=== PATIENT | female | born 1990 | race Caucasian/White ===

== ENCOUNTER → 2020-10-31 18:10 | Outpatient (CLI) | payer MEDICAID, SELFPAY | PROVIDERS: Referring Provider Obstetrics & Gynecology; Visit Provider Obstetrics & Gynecology | DX: Z36.85 Encounter for antenatal screening for Streptococcus B (principal) | CPT/HCPCS: 87081 ==

== ENCOUNTER → 2020-11-06 16:35 | Outpatient (CLI) | payer MEDICAID, SELFPAY ==
[2020-11-06 17:30] LABS: Hematocrit 33.8 % (37-47); Hemoglobin 11.5 g/dL (12.0-15.0); Mean Corpuscular Hgb 29.6 pg (27.0-32.0); Mean Corpuscular Volume 86.9 fL (81-99); Mean Platelet Vol. 10.9 fl (6.2-12.0); Platelet Count 225 K/mm3 (150-450); RBC Distribution Width CV 14.4 % (11.6-14.6); RBC Distribution Width SD 45.7 fl (35.1-43.9); Red Blood Count 3.89 M/mm3 (4.2-5.4); White Blood Count 7.9 K/mm3 (4.4-11.0)
[2020-11-06 17:42] LABS: Protein, Urine (Random) 40.4 mg/dL (<11.9); Protein:Creat Ratio 222 mg/g CRE (0-200)
[2020-11-06 17:59] LABS: ALB/GLOB Ratio 0.8 RATIO (0.9-2.4); AST(SGOT) 17 U/L (15-37); Alanine Aminotransfer ALT/SGPT 17 U/L (13-56); Albumin, Serum 2.9 g/dL (3.2-5.0); Alkaline Phosphatase 97 U/L (45-117); Anion Gap 7 (5-15); BUN 5 mg/dL (7-18); BUN/Creat Ratio 10.1 RATIO (10-20); Calcium,Total 8.2 mg/dL (8.5-10.1); Chloride 106 mmol/L (98-107); EST Glomerular Filtration Rate 156 mL/min (>60); Est Glom Filt Rate - Afr Amer 189 mL/min (>60); Globulin 3.6 g/dL (2.2-4.2); Glucose 68 mg/dL (74-106); LDH 215 U/L (84-246); Potassium 3.6 mmol/L (3.5-5.1); Protein, Total 6.5 g/dL (6.4-8.2); Sodium Level 139 mmol/L (136-145)
== END ==
PROVIDERS: Visit Provider Student in an Organized Health Care Education/Training Program
DX: Z34.83 Encounter for supervision of other normal pregnancy, third trimester (principal)
CPT/HCPCS: 36415; 80053; 82570; 83615; 84156; 85027; 87086; 87088

== ENCOUNTER 2020-11-24 01:35 | Inpatient (IN) | payer MEDICAID, SELFPAY ==
[2020-11-24] VITALS (33 sets, daily range): BP systolic 114–196; BP diastolic 60–116; PULSE 60–127; RESP 16–18; TEMP 36.2–36.8; O2SAT 82–100; BMI 39.8
--- NOTE | 2020-11-24 00:18 | PCM.HP.OB ---
HPI - General General Date of Admission: 11/24/20 HPI Narrative SANDY BLEDSOE, is a 30 F who presents at 39 3/7 weeks gestation with c/o contractions Maternal Data Information SUSIE Calculator Estimated Delivery Date Method Current WG Current Estimate 11/28/20 Ultrasound #1 39w 3d Other Estimates 11/28/20 LMP (Certain) 39w 3d PFSH PFSH Medical History (Updated 11/24/20 @ 01:[address] Mayra Roa MD) Anxiety Depression Gestational HTN hemorrhage Home Medications ferrous sulfate [Iron (ferrous sulfate)] 325 mg PO DAILY 11/24/20 [History Last Taken 11/23/20] [id number] [] 1 tab PO DAILY 11/24/20 [History Last Taken 11/23/20] Allergy/AdvReac Type Severity Reaction Status Date / Time No Known Allergies Allergy Verified 11/24/20 00:25 Family History (Updated 11/24/20 @ 00:[address] Mayra Roa MD) Father Suicide Mother Thyroid disorder Other Diabetes Hypertension Social History (Updated 11/24/20 @ 00:[address] Mayra Roa MD) Smoking Status: Never smoker alcohol intake: former details: not during History 3 Elective abortions 0 Hx Para 2 Spontaneous abortions 0 Hx # Term Pregnancies 2 Ectopic pregnancies 0 Hx # Pregnancies 0 Multiple births 0 # of living children 2 Addt'l History[place] [facility] [place]ORY AND PHYSICAL (11/24/2020) Name: SANDY BLEDSOE History of this : This is a 30 year old [id number] presents at 39 wks + 3 days gestation. OB Physician: EVERETT CHÁVEZ MD [place]'s Physician: Theron Swan ...................................................................... : 1990 Age: 30 Address: [address] [place] [address] Phone: [phone]) [phone]) [phone] Insurance Carrier: [facility] [id number] Emergency Contact: ALVARO CHÁVEZ [phone] ...................................................................... Final SUSIE: 11/28/20 By Ultrasound: 10 weeks 5 days PARITY: (G-Total Pregnancies P-Fullterm,Premature,Induced AB,Spont AB, Ectopics, Multiple,Living) SUSIE CONFIRMATION: By LMP: 02/22/20 Final SUSIE: 11/28/20 OB PROBLEM LIST: Needs copy of What to Expect book. EPDS 5. Hx of HTN in first per pt Declines ASA Hx of PPH O Negative Needs Rhogam Plans at [facility] ALLERGIES: No Known Drug Allergies MEDICATIONS: aspirin 81 mg tablet,delayed release 1 PO QD iron 325 mg (65 mg iron) tablet One pill by mouth once a day Vitamin 27 mg iron- 0.8 mg tablet 1 qd SOCIAL HISTORY: Smoking - Never Alcohol Use - drinks occasionally not while Diet - balanced Diet and one Dr Almanza qd. Water- 40 oz qd. Lifestyle - moderate stress lifestyle Exercise - Active w home/kids. Enc to walk 15-20 min daily. 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 LIves w husb and kids. Place of - [place] Spouse-Sig Other Name - Alvaro Chávez Spouse-Sig Other Occupation - Survey Project Manager-short distance Spouse-Sig Other Phone No - [phone] Children Name(s) - Milton 7 y, Ke[place] 5 y. PRIOR DELIVERY HISTORY DEL DATE GEST LAB WT LB WT OZ TYPE ANES LABOR TX 18 Jan 13 38 [phone] Vag Local No 24 Feb 21 39 [phone] Vag Local No ANTEPARTUM FLOW CHART VISIT GE RTC FU F F NJ U U DATE WK MD WKS HT PN HR M SS BP ED WT NJ GL D EF ST __ ____ ___ __ __ ___ __ __ __ ___ __ __ __ ___ __ 13 Nov SHM 1 + 130/62 sl 223 tr - 07 Nov JM 1 37 V + + 134/80 sl 221 - - 1 Oct 36 CM 1 36 V + + 144/60 sl 224 - - 24 Oct 36 JMW 1 36 V + + 136/70 0 222 ne ne ft 50 hi 08 Oct JMW 2 34 + + 128/68 sl 223 tr - September JM 2 32 V + + 144/64 0 222 tr ne October 04 JMW 3 28 + + 130/66 0 224 tr - 06 Aug 31 JMW 4 24 + + 136/70 0 219 - 1+ 11 Jul 28 JM 4 21 - + + 120/82 0 222 tr - May 23 JM 4 14 - + + 115/71 0 222 tr - Apr 18 JMW 4 + + 122/80 0 224 tr - ANTEPARTUM NOTE(S): Nov 19 2020: uncomfortable Nov 13 2020: Regular Cxts x 1-2 hrs, Good FM Nov 06 2020: recheck BP large cuff same 144/60 Oct 31 2020: LARC, GBS today Fox 8 2021: Doing Well, Good FM Oct 03 2020: lying on left side 116/40 Sep 10 2020: Doing Well, 1hrGTT/CBC/Antibody Screen and Rhogam today Aug 13 2020: Glucola/Instructiuons Given for next PNV Jul 18 2020: comp u/s today Jun 04 2020: doing well, nausea improving May 07 2020: Doing Well, Limited U/S today COMPREHENSIVE ANTEPARTUM NOTE(S): Nov 19 2020: Uncomfortable, ready to have baby! Wants cervix ck with membrane stripping if able. Lots of irregular ctx's. Third baby with history of 6 and 10 hour labor. Lives about an hour away. Advised can come when ctx's are 5-7 min apart or sooner if feels things are progressing rapidly. Reviewed FM and to come in if SROM. LMT Nov 13 2020: 37 weeks, feeling contractions but cervix unchanged. Blood pressure today within normal limits we will continue to monitor. JM Nov 06 2020: BP elevated. Denies WEIR's. Reports slight edema in feet when weather is really hot. Good FM. GBS negative 10/31/20. Nov 06 2020: 36/6w visit. GBS neg. BP elevated today, hx of PIH. Denies WEIR, vision changes, chest pain/dyspnea, RUQ pain, nausea. Exam wnl, neuro exam wnl today. Will get labs. Had elevated BP earlier in , but resolved at visit. will get labs. Pt aware if persistent elevation next week she may require induction for gestational HTN. Will notify with signs/symptoms of pre-e. F/u 1w. CM Nov 05 2020: H taken to OB. tkg Oct 31 2020: Sandy is here for PNV. LARC form reviewed and declined. Will consider at follow up apt. Feeling tired with low back pain, Having good FM. GBS today. Urine neg/neg. LSS Oct 03 2020: Sandy is here for PNV. BP elevated 144/64. Retake with lyng on left side 116/40. No edema noted at this visit. Having good FM. They did not make the vacation trip like planned. Having BH ctx with some lower back pain. No other concerns. Urine tr/neg. LSS Oct 03 2020: 32wk, 1hr GTT wnl. s/p Rhogam. Pt with inital elevated BP, repeat wnl and pt asypmtomatic. If elevated at next visit will get HELLP labs. CONSUELO Sep 10 2020: Sandy presents here today for PNV with OGCT, CBC and Antibody Screen drawn in (L) antecubital with 23g x 1 attempt via undersigned without problem. Rhogam full dose given in LUOQ IM after blood draw via undersigned. NOELLE Jul 18 2020: 21wk, anatomy u/s wnl. For 1hr GTT next visit. CONSUELO Jun 04 2020: 14wk, hx of PPH. Hx of 'HTN in first ' per pt, declines ASA r/b/a given. For anatomy u/s at next visit. Traveling to [place], discussed travel precautions. 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 Their kids are Milton age 7 and [place] age 5 born at [facility]. She had PIH w her first pg and a PP hemorrhage w her second just short of having blood transfusions. Sandy has NKA. She's a lifetime non Apr 23 2020: Sandy presents for her Missed Menses. She is a 30yo G 3, P 2 with hx of 2 prior 's. She is planning to deliver via at [facility]. Pt sts she knows her LMP was prior to so we are doing an estimation of approx 02/22/2020 and SUSIE by this LMP is 10/30/20. She is taking OTC PNV's. Pt denies any smoking, and sts she drinks alcohol occassionally but not while . +UPT in office today. JT REVIEW OF SYSTEMS: GENERAL - Denies fever, or chills SKIN - Denies rash, new skin lesions, or change in moles EYES - Denies blurred vision, or change in visual acuity EARS - Denies ear pain, or difficulty hearing NOSE - Denies nasal congestion, discharge, or bleeding MOUTH - Denies sore throat, or difficulty swallowing NECK - Denies pain or swelling RESPIRATORY - Denies shortness of breath, cough, wheezing CARDIOVASCULAR - Denies palpitations, chest pain, orthopnea, PND, peripheral edema, syncope or claudication GASTROINTESTINAL - Denies nausea, vomiting, diarrhea, constipation, Denies abdominal pain, melena and or bright red blood GENITOURINARY - Denies dysuria, frequency of urination, urgency, or hesitancy MUSCULOSKELETAL - Denies joint or muscle pain, or back pain NEUROLOGICAL - Denies localized numbness, weakness, or tingling PSYCHIATRIC - Denies depression, anxiety, substance abuse or suicide attempts ENDOCRINE - Denies heat or cold intolerance, weight loss or gain, increasing thirst HEMATO-IMMUNOLOGIC - Denies easy bruising, bleeding, oral ulcerations or recurrent infections GENETICS SCREENING: Age 35+ years: No Thalassemia: No Neural Tube Defect: No Down Syndrome: No MARIE-SACHS: No Sickle Cell Disease: No Hemophilia: No Musc. Dystrophy: No Cystic Fibrosis: No-declines screening Dave Chorea: No Mental Retardation: No Fragile X: No Other genetic: No Other defects: No SABs/still births: No Drugs since LMP: No INFECTION HISTORY: High risk AIDS: No High risk Hepatitis: No Exposed to TB: No Exposed to Herpes: No Rash/viral illness since LMP: No History of STD: No MENSTRUAL HISTORY: *Menses Regularity: IrregularFrequency: variableBCP's at Conception: NoMenarche (Age Onset): 15* PAST SUMMARY: PARITY: 1. Total Pregnancies............ 3 2. Full Term Pregnancies........ 2 3. Premature.................... 0 4. Abortions - Induced.......... 0 5. Abortions - Spontaneous...... 0 6. Ectopics..................... 0 7. Multiple Births.............. 0 8. Living Children.............. 2 PAST #1: Date of :.................. [birth year] Gestation Weeks:................ 38 Length of labor(hours):......... 10 Sex:............................ M Weight-lbs:............... 7 Weight-oz:................ 7 Type of Delivery:............... Vag Type of Anesthesia:............. Local Place of Delivery:.............. [facility] Treatment of Labor?:.... No Comment: [facility] PAST #2: Date of :.................. 03/02/15 Gestation Weeks:................ 39 Length of labor(hours):......... 8 Sex:............................ F Weight-lbs:............... 9 Weight-oz:................ 0 Type of Delivery:............... Vag Type of Anesthesia:............. Local Place of Delivery:.............. [facility] Treatment of Labor?:.... No Comment: PPHEM. NST FHR Rate Baby A Baseline: 125 Variability:: Moderate Accelerations:: 15 x 15 Decelerations:: None NST Reactive:: Yes FHR Category:: Category I Uterine Activity:: 4/10 min Vital Signs Vital Signs Vital Signs: 11/24/20 00:12 Pulse Rate 103 H Blood Pressure 154/91 H BP Systolic 154 BP Diastolic 91 Pulse Ox 100 Physical Exam Const alert, oriented x3 and no apparent distress HEENT normocephalic Resp normal respiratory effort, normal air movement and clear to auscultation bilaterally Cardio regular rate and regular rhythm GI normal to inspection, nondistended, normoactive bowel sounds, soft to palpation, non-tender and non-distended Inspection: gravid Labs Labs Labs: Blood Type Pending Antibody Screen Pending Hct 36.6 % (37-47) L Hgb 12.5 g/dL (12.0-15.0) 04/23/20 HIV neg, Rubella immune, RPR nr, HCV Ab neg, O neg, HBsAg neg Assessment & Plan (1) 39 weeks gestation of : PLAN: Admit in latent labor, Cat I FHR Elevated BP, prior hx gHTN vs. preeclampsia - will obtain preeclamptic labs
[2020-11-24 01:02] LABS: ROM Internal Control Test YES-OK TO RESULT pt. (Internal QC); ROM Patient Test Negative (Negative)
[2020-11-24 01:02] LABS: Hematocrit 36.6 % (37-47); Hemoglobin 12.5 g/dL (12.0-15.0); Mean Corp Hgb Conc 34.2 g/dL (32-36); Mean Corpuscular Hgb 29.8 pg (27.0-32.0); Mean Corpuscular Volume 87.1 fL (81-99); Mean Platelet Vol. 11.2 fl (6.2-12.0); Platelet Count 252 K/mm3 (150-450); RBC Distribution Width CV 14.6 % (11.6-14.6); White Blood Count 10.1 K/mm3 (4.4-11.0)
[2020-11-24 01:16] LABS: Protein, Urine (Random) 9.9 mg/dL (<11.9); Protein:Creat Ratio 337 mg/g CRE (0-200)
[2020-11-24 01:21] LABS: AST(SGOT) 33 U/L (15-37); Alanine Aminotransfer ALT/SGPT 34 U/L (13-56); Creatinine, Serum 0.51 mg/dL (0.55-1.02); EST Glomerular Filtration Rate 150 mL/min (>60); Est Glom Filt Rate - Afr Amer 182 mL/min (>60); Estimated Creatinine Clearance 135.85 ml/min; Uric Acid 4.5 mg/dL (2.6-6.0)
[2020-11-24] MEDS: Lactated Ringers 1,000 ML 200 ML IV (03:18)
[2020-11-24 03:49] LABS: Chlamydia Trachomatis by PCR Negative (Negative); Neisserai gonorrhoeae by PCR Negative (Negative); Probe Check PASS; Sample Adequacy Control PASS; Specimen Processing Control PASS
[2020-11-24] MEDS: Oxytocin 30 units/NS 500 ml 30 UNITS/500 ML IV.SOLN IV (03:56)
[2020-11-24] MEDS: Oxytocin 30 units/NS 500 ml 30 UNITS/500 ML IV.SOLN 334 UNITS IV (04:09)
[2020-11-24] MEDS: Methylergonovine 0.2 MG/ML Ampul IM (04:14)
--- NOTE | 2020-11-24 04:26 | EX.PCM.OBRPT ---
Assessment & Plan (1) (spontaneous vaginal delivery): Maternal Data Information SUSIE Calculator Estimated Delivery Date Method Current WG Current Estimate 11/28/20 Ultrasound #1 39w 3d Other Estimates 11/28/20 LMP (Certain) 39w 3d Vaginal Delivery Maternal Presentation Maternal Presentation: Latent labor Type of Induction: - (Amniotomy for augmentation) Operative Information Date of Procedure: 11/24/20 Pre-Operative Diagnosis: 39-3/7 weeks gestation Preeclampsia without severe features Post-Operative Diagnosis: 39-3/7 weeks gestation Preeclampsia without severe features Surgery / Procedure Performed: Spontaneous Vaginal Delivery Type of Anesthesia: None Estimated Blood Loss: 450 mL Findings Description of Procedure: Patient was fully dilated and +2 station with category 1 heart rate tracing. She pushed with waning maternal effort thus Pitocin was started for further augmentation. With continued pushing infant head delivered in CLARI. The anterior shoulders delivered with ease. With continued coaching the posterior shoulders and body delivered. The infant was placed on the maternal abdomen further attended by nursery personnel. The cord was doubly clamped and cut. The placenta delivered spontaneously and appeared intact on inspection. The uterus was noted to be atonic thus bimanual uterine exam was performed with retrieval of several clots and uterine tone improved with the fundus at the umbilicus. IM Methergine was given. Perineum was intact. Sponge counts were correct x2. Presentation: Vertex Amniotic Membrane Rupture Type: Artificial Amniotic Fluid Description: Clear Placental Delivery Description: Spontaneous Placenta Disposition: [facility] Cord Vessel Description: 3 Vessels Cord Entanglement: None Nuchal Cord Compression: Without compression Cord Gases: ABG and VBG A Gender: Female (1 minute): 7 (5 minute): 8 Delayed Cord Clamping: No Post Vaginal Delivery Medications Given After Delivery: IV Pitocin and IM Methergin Episiotomy Description: None Laceration: None
--- NOTE | 2020-11-24 04:35 | PCM.DC ---
Discharge Instructions Diet Discharge Diet: No restrictions Activity Discharge Activity: Return to Normal Activity May resume sexual activity in: 4-6 weeks Lifting Restrictions: 20 lb Dressing / Incision Call your doctor if you observe: Fever of 101 or Higher, Using more than 1 pad per hour, Shortness of breath, Chest pain, Calf discomfort, Uncontrolled pain and - (Persistent or severe headache) Follow Up Care Please Follow Up With: Mayra Roa MD When: 1 to 2 weeks for blood pressure check 6 weeks for visit Test Results: Test results from this visit will be discussed in further detail at your follow-up appointment, if applicable. Discharge Plan Admission Admit Date/Time: 11/24/20 01:35 Primary Reason for Your Visit: Vaginal delivery, preeclampsia Attending Provider: Mayra Aiken Instructions Patient Instructions: After a Vaginal , Understanding Preeclampsia, Understanding Depression Discharge Orders/Prescriptions Prescriptions: New ibuprofen 800 mg tablet 800 mg PO Q8H PRN (Reason: pain) Qty: 30 RF: 0 Continued ferrous sulfate [Iron (ferrous sulfate)] 325 mg (65 mg iron) Tablet 325 mg PO DAILY RF: 0 kfchggil-[id number]-Xb-FA 1 mg Tablet 1 tab PO DAILY RF: 0 Disposition Disposition (needs filled in before D/C Order can be placed): Home, Self Care
[2020-11-24] MEDS: Ibuprofen 600 MG Tablet PO ×2 (05:20→23:20)
[2020-11-25 00:25] VITALS: BP 113/63; PULSE 92; RESP 18
[2020-11-25 04:18] VITALS: BP 112/61; PULSE 81; RESP 18; TEMP 36.1
[2020-11-25 06:21] LABS: Hematocrit 30.3 % (37-47); Hemoglobin 10.3 g/dL (12.0-15.0); Mean Corpuscular Hgb 30.1 pg (27.0-32.0); Mean Corpuscular Volume 88.6 fL (81-99); Mean Platelet Vol. 10.6 fl (6.2-12.0); Platelet Count 224 K/mm3 (150-450); RBC Distribution Width CV 14.7 % (11.6-14.6); RBC Distribution Width SD 47.4 fl (35.1-43.9); Red Blood Count 3.42 M/mm3 (4.2-5.4); White Blood Count 8.5 K/mm3 (4.4-11.0)
[2020-11-25 08:00] VITALS: BP 121/70; PULSE 83; RESP 18; TEMP 36.2
--- NOTE | 2020-11-25 08:59 | PCM.PN.OB ---
Subjective Subjective Out of bed and ambulating without difficulty. Voiding without difficulty. her perineum and lower back is sore however improved with ibuprofen. Denies heavy lochia. She is breast-feeding. Objective Data Objective Data Vital Signs: Vital Signs Temp Pulse Resp BP Pulse Ox 97.2 F L 83 18 121/70 H 97 11/25/20 08:00 11/25/20 08:00 11/25/20 08:00 11/25/20 08:00 11/24/20 20:22 Oxygen Delivery Method Room Air Weight: 102.058 kg Body Mass Index (BMI) 39.8 Intake & Output: Intake and Output for Last 24 Hours 11/23/20 11/24/20 11/25/20 23:59 23:59 23:59 Intake Total 653.60 / 653.60 Output Total 600 / 600 Balance 53.60 / 53.60 Lab / Micro Data Result Diagrams: 11/25/20 06:15 11/24/20 00:50 Labs: Laboratory Results - last 24 hr 11/25/20 06:15: WBC 8.5, RBC 3.42 L, Hgb 10.3 L, Hct 30.3 L, MCV 88.6, MCH 30.1, MCHC 34.0, RDW Std Deviation 47.4 H, RDW Coeff of Abelino 14.7 H, Plt Count 224, MPV 10.6 Micro: Microbiology 11/24/20 02:03 Mucosa - Nose SARS-CoV-2 Antigen (Rapid) - Final Physical Exam Const alert, oriented x3 and no apparent distress Resp normal respiratory effort, normal air movement and clear to auscultation bilaterally Cardio regular rate, regular rhythm, S1 normal heart sound and S2 normal heart sound GI normal to inspection, nondistended, normoactive bowel sounds, soft to palpation, non-tender and non-distended Manual OB Exam: other lochia scant Uterus Palpation: uterus fundus firm Extremity no calf tenderness Assessment & Plan (1) (spontaneous vaginal delivery): COMMENT: day #1 status post uncomplicated delivery with gestational hypertension versus preeclampsia PLAN: No signs or symptoms of preeclampsia at this time BP is appropriate Rh neg, infant also Rh neg We will plan for DC home today. Blood pressure check in office in 7 to 10 days.
--- NOTE | 2020-11-25 10:15 | CASEMGMT ---
Social Work Brief Assessment Labor and Delivery Unit Refer documentation below for further details. Date of Referral/Notification: 11/24/20 Time of Referral: 05:50 Referred By: Physician Reason for Referral: MOB with history of anxiety and depression Date of Intervention: 11/25/20 Time of Intervention: 10:15a Informant: Medical record and mother of baby (MOB) Assessment: Met with MOB and FOB-Tripp Caldwell in room. Introduced role and reason for referral. MOB reports this is she and FOB?s 3rd child together. MOB reports has a 7 and 5 year old at home. MOB reports she and FOB has been together for 14 years. MOB states good support from FOB and families. MOB states history of anxiety and depression and has been treated with counseling in the past. MOB has felt good throughout pregnancies and never had an issue with depression. Reviewed signs and symptoms and provided MOB with resources. MOB states has all needs met for baby and denies any needs for home going. Nursing updated on assessment and denies any issues or concerns. Plan: Home with resources provided No further needs requested or indicated. Jerome Mosher, PIPE FINISHING SUPERVISOR, MAMMOGRAPHY SUPERVISOR
== END 2020-11-25 11:00 | disposition home or self-care (01) | DRG 560 ==
LOC: WPOUT 01:36 → WP 01:36
PROVIDERS: Admitting Provider Obstetrics & Gynecology; Visit Provider Obstetrics & Gynecology
DX: O14.04 Mild to moderate pre-eclampsia, complicating childbirth (principal); Z3A.39 39 weeks gestation of pregnancy; Z37.0 Single live birth
CPT/HCPCS: 36415; 59025; 59050; 82565; 82570; 84112; 84156; 84450; 84460; 84550; 85027; 86850; 86900; 86901; 87426; 87491; 87591; 94760; 99218; J7120; G0378

== ENCOUNTER → 2022-02-06 | Outpatient (CLI) | payer MEDICAID, SELFPAY ==
[2022-02-13 15:27] LABS: HPV APTIMA, High Risk Negative (Negative)
== END | disposition home or self-care (01) ==
LOC: LABSPEC 17:02
PROVIDERS: Visit Provider Obstetrics & Gynecology
DX: Z12.4 Encounter for screening for malignant neoplasm of cervix (principal)
CPT/HCPCS: 87624; 88175; G0145